=== PATIENT | female | born 1980 | race Caucasian/White ===

== ENCOUNTER 2019-06-04 09:11 | Day surgery (SDC) | payer BC, OTHER ==
[2019-06-03 14:30] VITALS: BMI 23.3
[2019-06-04 13:11] VITALS: TEMP 97.2
[2019-06-04 13:15] VITALS: BP 115/66; PULSE 66
--- NOTE | 2019-06-07 16:33 | PATH ---
Surgical Pathology Report Patient Name: MIRYAM LI [facility]. Rec. #: [id number] /Age/Gender: 1980 (Age: 38) / F Account: [id number] Location: U-ENDOSCOPY Taken: 06/04/2019 Received: 06/04/2019 Reported: 06/07/2019 Physicians: Blaise Georges M.D. Specimen(s) Received A: STOMACH POLYP B: RANDOM STOMACH BIOPSY Clinical History Chronic abdominal pain, dyspepsia Postoperative diagnosis: Dysfunctional dyspepsia with stomach polyp Final Diagnosis A. STOMACH POLYP, POLYPECTOMY: FUNDIC GLAND POLYP. IMMUNOSTAIN FOR H. PYLORI IS NEGATIVE. B. RANDOM STOMACH BIOPSY: GASTRIC MUCOSA WITH MILD CHRONIC GASTRITIS. IMMUNOSTAIN FOR H. PYLORI IS NEGATIVE. NEGATIVE FOR INTESTINAL METAPLASIA. Electronically Signed Kusum Quevedo M.D. Gross Description A. Received in formalin, labeled "stomach polyp" is a clement, irregular portion of soft tissue measuring 0.3 cm. in greatest dimension. The specimen is submitted in toto in one cassette. B. Received in formalin, labeled "random stomach biopsy" are 2 clement, irregular portions of soft tissue measuring 0.3 and 0.4 cm. in greatest dimension. The specimens are submitted in toto in one cassette. 06/04/2019 [facility]06/04/2019
== END 2019-06-04 12:06 | disposition home or self-care (01) ==
LOC: JASU-ENDO 09:11
PROVIDERS: ATTEND Internal Medicine Gastroenterology
PROC: 0DB68ZX Excision of Stomach, Via Natural or Artificial Opening Endoscopic, Diagnostic (ICD-10-PCS; principal; 2019-06-04 10:00)
DX: K31.7 Polyp of stomach and duodenum (principal); K29.50 Unspecified chronic gastritis without bleeding; R10.9 Unspecified abdominal pain
CPT/HCPCS: 81025; 88305-TC